=== PATIENT | male | born 1985 | race Caucasian/White ===

== ENCOUNTER → 2017-01-18 | Outpatient (CLI) | payer BC ==
[~2017-01-18] MED LIST: ATIVAN 0.5MG0.5 MG PO; LEXAPRO20 MG PO; PROTONIX40 MG PO
== END | disposition disaster alternative care site (69) ==
LOC: GRAD 15:10
DX: Z03.89 Encounter for observation for other suspected diseases and conditions ruled out (principal); K44.9 Diaphragmatic hernia without obstruction or gangrene; Z90.49 Acquired absence of other specified parts of digestive tract; Z98.890 Other specified postprocedural states
CPT/HCPCS: Q9967